=== PATIENT | male | born 1985 | race Caucasian/White ===

== ENCOUNTER 2016-03-28 10:10 | Outpatient (RCR) | payer OTHER ==
[~2016-03-28 10:10] MED LIST: FAMVIR 500500 MG/TAB PO; NO HOME MEDICATIONS; PREDNISONE20 MG PO
== END 2016-06-26 ==
LOC: WSOH
DX: S86.012A Strain of left Achilles tendon, initial encounter (principal)

== ENCOUNTER 2019-05-13 03:01 | Emergency (ER) | payer BC ==
[~2019-05-13] VITALS: Ht 182.9 cm; Wt 206.8 kg
[2019-05-13 04:10] VITALS: BP 146/80; PULSE 68; TEMP 98.9
== END 2019-05-13 04:37 | disposition home or self-care (01) ==
LOC: COL.ER 03:01
DX: M54.5 Low back pain (principal); G89.29 Other chronic pain

== ENCOUNTER → 2019-06-03 | Outpatient (CLI) | payer BC | LOC: COL.RAD 09:55 | DX: M51.16 Intervertebral disc disorders with radiculopathy, lumbar region (principal); M48.061 Spinal stenosis, lumbar region without neurogenic claudication ==

== ENCOUNTER → 2019-08-31 | Outpatient (CLI) | payer BC ==
[~2019-08-31] MED LIST changes: +MOBIC15 MG PO; +NEURONTIN800 MG/TAB PO; +PERCOCET 325 MG1 TA2 PO; +ROBAXIN 50500 MG/TAB PO; +SAXENDA6 MG/ML SQ; +ZANAFLEX CAPSULE4 MG PO
[2019-08-31 11:04] VITALS: PULSE 79
[2019-08-31 12:00] VITALS: BP 160/99; PULSE 90
--- NOTE | 2019-08-31 12:25 | NUR ---
PT TAKEN BY WHEELCHAIR TO POV. HE STATES NO PAIN IN HIP AND NO LINGERING NUMBNESS OR TINGLING IN ALEE LEGS.
== END ==
LOC: COL.RAD 09:14
DX: M54.41 Lumbago with sciatica, right side (principal); M54.42 Lumbago with sciatica, left side; G89.29 Other chronic pain
CPT/HCPCS: J3301

== ENCOUNTER → 2022-06-11 | Outpatient (CLI) | payer OTHER | LOC: COL.RAD 10:05 | DX: M17.11 Unilateral primary osteoarthritis, right knee (principal) ==